=== PATIENT | male | born 1985 | race Caucasian/White ===

== ENCOUNTER 2019-01-13 22:13 | Emergency (ER) | payer MEDICAID ==
[2019-01-13 22:21] VITALS: BP 132/82
--- NOTE | 2019-01-13 22:43 | ED Physician Documentation ---
History of Present Illness - Stated complaint Stated Complaint: LIP LAC - Chief complaint Chief Complaint: Laceration - History obtained from History obtained from: Patient - History of Present Illness Timing: Prior to arrival - Additonal information Additional information: Patient is a previously healthy 33-year-old male who sustained a upper lip laceration on the buccal mucosa just prior to arrival when he was playing with his daughter. Patient reports that his daughters had excellently struck him in the head and denies other injuries, loose tooth or fractured teeth, loss of consciousness, epistaxis, or other injury. No other improving or worsening factors noted. Review of Systems Throat: denies: Dental pain / toothache Skin: reports: Laceration (s) PD PAST MEDICAL HISTORY - Past Medical History Past Medical History: No Other Past Medical History: denies - Past Surgical History Past Surgical History: No - Present Medications Home Medications: Ambulatory Orders Medication Instructions Recorded Confirmed Chlorhexidine Gluconate [Peridex] 15 ml MM TID 14 Days mouthwash 01/13/19 - Allergies Allergies/Adverse Reactions: Allergies Allergy/AdvReac Type Severity Reaction Status Date / Time No Known Drug Allergies Allergy Verified 01/13/19 22:21 - Social History Does the pt smoke?: Yes Smoking Status: Current every day smoker Does the pt drink ETOH?: No Does the pt have substance abuse?: No - Immunizations Immunizations are current?: Yes PD ED PE NORMAL - Vitals Vital signs reviewed: Yes - General General: Alert and oriented X 3, No acute distress, Well developed/nourished - HEENT HEENT: Atraumatic (Except for laceration to midline upper lip on buccal mucosa that is linear and approximately 2 cm in length ), Moist mucous membranes, Pharynx benign, Dentition benign - Respiratory Respiratory: No respiratory distress - Derm Derm: Normal color, Warm and dry, No rash - Extremities Extremities: No deformity, No tenderness to palpate - Neuro Neuro: Alert and oriented X 3, No motor deficit, No sensory deficit - Psych Psych: Normal mood, Normal affect Results - Vitals Vitals: Vital Signs - 24 hr 01/13/19 22:18 Temperature 36.8 C Heart Rate 74 Respiratory 16 Rate Blood Pressure 132/82 H O2 Saturation 100 Oxygen O2 Source Room air PD MEDICAL DECISION MAKING - ED course Complexity details: considered differential, d/w patient ED course: Patient presenting with superficial laceration to the buccal mucosa of his midline upper lip. No other intraoral trauma or tooth damage noted. Patient denies other symptoms that raise high concerns for other close injury, concussion, intracranial injury. Physical exam reveals a superficial approximately 2 cm laceration and discuss closure with dissolvable stitch versus watchful waiting as feel that bucca mucosa will return a week quickly and heal well on its own. Patient's preference is to forego stitching at this time. Discussed supportive cares including need for good oral hygiene to avoid infection, as well as strict return precautions and appropriate follow-up. Departure - Departure Disposition: 01 Home, Self Care Clinical Impression: Laceration Instructions: ED Laceration All Follow-Up: your,doctor [Other] - Within 3 Days Prescriptions: Chlorhexidine Gluconate [Peridex] 15 ml MM TID 14 Days mouthwash Comments: Please use mouthwash as prescribed, as well as flossing and brushing. Be aware of fluid and food that you eat to avoid pain and injury. Follow up with PCP in 2-3 days and return to ED sooner if experience worsening symptoms or other concerns.
== END 2019-01-13 22:51 | disposition home or self-care (01) ==
LOC: ED 22:13
DX: S01.511A Laceration without foreign body of lip, initial encounter (principal); W50.0XXA Accidental hit or strike by another person, initial encounter; Y93.89 Activity, other specified; F17.200 Nicotine dependence, unspecified, uncomplicated
CPT/HCPCS: 99283